=== PATIENT | female | born 1995 | race Caucasian/White ===

== ENCOUNTER 2024-11-28 08:07 | Emergency (ER) | payer OTHER, SELFPAY ==
[2024-11-28 08:25] VITALS: BP 106/77; PULSE 95; RESP 18; TEMP 36.8; O2SAT 99; BMI 16.7
[2024-11-28 08:46] LABS: UTC Strep Screen (Rapid) Negative (Negative)
--- NOTE | 2024-11-28 08:55 | EXP.UTC ---
Discharge Plan Disposition Patient Disposition: Home, Self-Care Condition: Good Prescriptions Prescriptions: New polymyxin B sulf-trimethoprim 10,000 unit- 1 mg/mL drops 2 drp ophthalmic (eye) Q6H 7 Days Qty: 20 0RF Rx Instructions: in both eyes while awake; do not exceed 6 doses in 24 hours cefdinir 300 mg capsule 300 mg PO BID Qty: 20 0RF No Action atomoxetine [Strattera] 40 mg capsule 40 mg PO DAILY Qty: 30 1RF Referrals Follow up/Referrals: Provider,Referral, [Primary Care Provider] - See instructions Activity Restrictions/Add. Instructions Additional Instructions/Restrictions: *Monitor Temp, Over the counter Motrin or Tylenol as directed/as needed Tylenol every 4 hours and Motrin every 6 hours (as long as your family doctor has told you that you can take it) for fever or pain. and straight to ER if unable to lower temp less than 101.0 after medication given *Warm salt water gargles may help to soothe the throat *Throat Lozenges? *Warm fluids like tea with honey may help to soothe the throat? *Sleep elevated *Humidifier/Vaporizer Take medication and use eye drops as prescribed Your throat swab was sent for culture. Those results are typically sent to your primary care. Be sure to follow up in 2-3 days with your family doctor/primary care physician if no improvement so they can review those result and treat if necessary. If you don?t have a primary care doctor, I recommend you get one but in the mean time, you will have to return to a walk in clinic Follow up IMMEDIATELY for new or worsening symptoms or no Noticeable improvement over the next 48-72 hours. 911 for difficulty breathing or swallowing Clinical Impressions Clinical Impression: Pharyngitis Instructions Patient Instructions: Sore Throat, DI for Conjunctivitis, Conjunctivitis Print Language Print Language: Maldivian Discharge ED Provider: Dayanna Lilly [facility] [place] HPI General Stated complaint: sore throat, redness and swelling to both eyes Mode of Arrival: Ambulatory Source of Information: Patient Limitations: No Limitations Time Seen by Provider: 11/28/24 08:55 Description of Symptoms (Recalled from Triage Doc. by RN): PATIENT C/O REDNESS AND DRAINGE TO BILATERAL EYES, SORE THROAT, AND SINUS DRAINAGE X 2-3 DAYS HEENT Symptoms (Recalled from RN notes): Yes Resp Symptoms (Recalled from RN notes): No Skin Symptoms (Recalled from RN notes): No MS Symptoms (Recalled from RN notes): No Functional Status (Recalled from RN notes): WNL History of Present Illness Provider Complaint: Pt states that she has been having sinus congestion and drainage, sore throat and now she is having drainage and redness to both eyes States this is what she done last times she had strep throat and feels like she may have it now Related Data Previous Rx's ?Medication ?Instructions ?Recorded atomoxetine 40 mg capsule 40 mg PO DAILY #30 caps 11/27/24 (Strattera) cefdinir 300 mg capsule 300 mg PO BID #20 caps 11/28/24 polymyxin B sulfate 10,000 2 drp ophthalmic (eye) Q6H 7 days 11/28/24 unit-trimethoprim 1 mg/mL eye drops #20 mL Allergies Allergy/AdvReac Type Severity Reaction Status Date / Time No Known Allergies Allergy Verified 10/26/24 11:20 Worker's Comp Is this a Worker's Comp case?: No [facility] Disclaimer: The information contained in this section may have been updated after the patient was seen, as this information can be updated by other users. Medical History (Updated 11/28/24 @ 09:02 by Dayanna Lilly APRN) Attention deficit disorder (ADD) in adult Social History (Updated 10/26/24 @ 08:48 by Faye Mir APRN) Smoking Status: Current every day smoker tobacco type: cigarettes and e-cigarettes second hand exposure: No alcohol intake: current alcohol intake frequency: a few times a month counseling given: No substance use type: denies use counseling given: No current occupational status: employed Travel in the last 8 weeks: None adopted: No caregiver/support person: Yes foster care: No household members: significant other housing: house lives independently: No marital status: legally number of children: 2 number of grandchildren: 0 education level: other details: EMT training Hx Recent Travel: No sexually active: Yes caffeine: Yes physical activity: none working smoke detector in home: Yes fire extinguisher in home: Yes carbon monox detector in home: Yes firearms in home: No do you feel safe at home: Yes victim of physical abuse: No victim of emotional abuse: No victim of sexual abuse: No would you like helpful sources: No Have you lived/traveled outside [place] in past 30 days?: No Contact w/someone who lives/traveled outside [place] past 30 days?: No Exposure to someone with infectious disease in past 14 days?: No Do you have a fever (greater than 100.4 F or 38 C)?: No Have you tested positive for COVID-19: No Exposed to someone with COVID-19 in past 14 days?: No Do you have a sore throat?: Yes Do you have a cough?: No Do you have any weakness?: No Do you have any diarrhea?: No Are you experiencing any unusual bleeding?: No Do you have any muscle aches/pain?: No Do you have any abdominal pain?: No Are you experiencing loss of taste or smell?: No ROS Obtained: Yes All systems reviewed & no additional complaints except as documented and Yes Systems reviewed as appropriate & no additional complaints except as documented Constitutional Constitutional: Reports system reviewed and no additional complaints, except as documented and Reports as per HPI Eyes Eyes: Reports system reviewed and no additional complaints, except as documented, Reports as per HPI, Reports eye discharge and Reports irritation ENT Ears, Nose, Mouth, and Throat: Reports system reviewed and no additional complaints, except as documented, Reports as per HPI, Reports nasal congestion, Reports sinus pressure and Reports sore throat Cardiovascular Cardiovascular: Reports system reviewed and no additional complaints, except as documented and Reports as per HPI Respiratory Respiratory: Reports system reviewed and no additional complaints, except as documented and Reports as per HPI Physical Exam General General appearance: alert and in no apparent distress Eye Eye exam: Present conjunctival redness (bilateral) and discharge (bilateral) ENT ENT exam: Present mucous membranes moist Expanded ENT Exam Nose exam: Present sinus tenderness Throat exam: Present tonsillar erythema Respiratory Respiratory exam: Present normal lung sounds bilaterally; Absent respiratory distress or wheezes Cardiovascular Cardiovascular exam: Present regular rate, normal rhythm and normal heart sounds Abdominal Exam Abdominal exam: Present soft and normal bowel sounds; Absent distention or tenderness Neurological Exam Neurological exam: Present alert, oriented X3 and normal gait Medical Decision Making Medical Records Screening: Per USPSTF and CDC recommendations, given the prevalence of disease in our region, it is our hospital?s policy to screen for HIV and viral Hepatitis for all patients aged 18 and over and those with ongoing risk factors. Kwesi Inquiry Pt receiving controlled substance: No Kwesi was queried for this patient: No Vital Signs: 11/28/24 08:25 Temperature 98.2 F Temperature Source Oral Pulse Rate [Left Brachial] 95 H Respiratory Rate 18 Blood Pressure [Left Arm] 106/77 L Blood Pressure Mean [Left Arm] 86 Blood Pressure Source [Left Arm] Automatic Cuff Blood Pressure Position [Left Arm] Sitting 02 Sat by Pulse Oximetry 99 Oxygen Delivery Method Room Air Lab Data Lab results reviewed: Yes I reviewed the patient's lab results. Lab Results 11/28/24 08:30: Strep Scn Rapid Clinic Negative Orders (Tests/Meds): ORDERS Category Date Time Status Strep Screen Confirmation Stat Micro 11/28/24 08:30 Received
[2024-11-28 09:04] VITALS: BP 106/77; PULSE 95; RESP 18; TEMP 36.8; O2SAT 99
== END 2024-11-28 09:08 | disposition home or self-care (01) ==
PROVIDERS: Emergency Provider Nurse Practitioner
DX: J02.9 Acute pharyngitis, unspecified (principal)
CPT/HCPCS: 87880; 99213; G0381

== ENCOUNTER 2025-02-28 09:59 | Outpatient (CLI) | payer OTHER, SELFPAY ==
[2025-02-28 11:07] LABS: Free Thyroxine Index 2.3 ug/dL (5.93-13.13); T4 (Thyroxine) 7.1 ug/dl (5.53-11.0); Triiodothryronine (T3) Uptake 33 % (23.5-40.5)
[2025-02-28 11:20] LABS: Thyroid Stimulating Hormone 2.17 uIU/mL (0.465-4.68)
[2025-03-01 13:13] LABS: Cortisol,AM 18.5 ug/dL (6.2-19.4)
== END 2025-02-28 23:59 | disposition home or self-care (01) ==
LOC: LAB 10:00
DX: R63.4 Abnormal weight loss (principal)
CPT/HCPCS: 36415; 82533; 84436; 84443; 84479